=== PATIENT | female | born 1995 | race Hispanic/Latino ===

== ENCOUNTER 2020-07-07 18:35 | Emergency (ER) | payer OTHER, SELFPAY ==
--- NOTE | ~2020-07-07 | XR_ITS ---
XR chest 2V DATE: 07/07/2020 22:51 INDICATION: Right upper chest pain TECHNIQUE: PA and lateral views COMPARISON: 04/25/2017 two-view chest FINDINGS: Normal heart size. No hilar or mediastinal enlargement. No pulmonary infiltrate or consolid ation, pleural effusion or pulmonary vascular congestion or pneumothorax. IMPRESSION: Negative Reviewed, dictated and finalized at location A. IMPRESSION: Negative
--- NOTE | ~2020-07-07 | XR_ITS ---
XR shoulder RT min 2V DATE: 07/07/2020 22:52 INDICATION: Right shoulder and neck pain. No known injury. TECHNIQUE: 4 views COMPARISON: None FINDINGS: No fracture or dislocation, periosteal reaction or bone destruction. No abnormal soft tissu e calcification. IMPRESSION: Negative Reviewed, dictated and finalized at location A. IMPRESSION: Negative
[2020-07-07 18:37] VITALS: BP 150/88; PULSE 86; RESP 20; TEMP 36.6; O2SAT 100
[2020-07-07 22:34] VITALS: BP 139/89; PULSE 77; RESP 16; O2SAT 100
--- NOTE | 2020-07-07 23:50 | ED.NECK ---
HPI - Neck Pain/Injury General Chief Complaint: Neck Pain/Injury Stated Complaint: neck pain Time Seen by Provider: 07/07/20 22:54 Source: patient Mode of arrival: ambulatory Limitations: language barrier (Using [employer] spanish medical interpreter) History of Present Illness HPI Narrative: Patient presents the emergency department for right sided neck pain present over the last 3 days. No known injury or trauma. Reports the pain is worse with movement and relieved with rest. It radiates into her right shoulder. She has been taking anti-inflammatories with some relief. Denies fever, cough, shortness of breath, or weakness. Related Data Allergies Allergy/AdvReac Type Severity Reaction Status Date / Time No Known Allergies Allergy Verified 07/07/20 23:36 Review of Systems Review of Systems: Narrative: CONSTITUTIONAL: Denies fever CARDIOVASCULAR: Denies chest pain RESPIRATORY: Denies dyspnea. MUSCULOSKELETAL: Reports joint pain, and myalgia. NEUROLOGIC: Denies numbness, or weakness. All systems reviewed & are unremarkable except as noted in HPI and below PMFSH Past Medical History Medical History (Updated 07/07/20 @ 23:53 by Kaitlin Arora PA-C) No active medical problems Social History Social History Smoking status: Never smoker Alcohol intake: never Exam Narrative: Exam Narrative: GENERAL: Well-appearing, well-nourished, and in no acute distress. HEAD: Normocephalic, atraumatic. EYES: EOMI. NECK: No midline spinal tenderness CHEST: Clear to auscultation. No respiratory distress. No wheezes rales or rhonchi HEART: Regular rate and rhythm. No murmur heard. Normal peripheral pulses. EXTREMITIES: Normal range of motion. No edema, erythema or obvious deformity. Strength equal in bilateral upper extremities (5/5). Normal radial pulses. Pain is reproducible with lifting the right arm SKIN: Warm, dry, no rash. NEURO: No focal deficits. Alert and oriented x3. PSYCH: Normal mood and affect Course Vital Signs Vital signs: Vital Signs Temperature 97.9 F 07/07/20 18:37 Pulse Rate 86 07/07/20 18:37 Respiratory Rate 20 07/07/20 18:37 Blood Pressure 150/88 H 07/07/20 18:37 Pulse Oximetry 100 07/07/20 18:37 Temperature 97.9 F 07/07/20 18:37 Pulse Rate 77 07/07/20 22:34 Respiratory Rate 16 07/07/20 22:34 Blood Pressure 139/89 07/07/20 22:34 Pulse Oximetry 100 07/07/20 22:34 MDM - Neck Pain/Injury MDM Narrative Medical decision making narrative: Patient presents the emergency department for right-sided neck pain radiating into the shoulder. Present over the last 3 days. No known injury or trauma. She is neurologically intact. Her vitals are stable. Chest x-ray and right shoulder x-ray without acute findings. Patient updated on case findings. She wished to leave before any further treatment or evaluation. Instructed to follow-up with her primary doctor Imaging Data Radiologist's impression: ITS Impressions Chest X-Ray 07/07/20 22:52 IMPRESSION: Negative Shoulder X-Ray 07/07/20 22:54 IMPRESSION: Negative Critical Care Time Critical Care Time Critical Care Time: No Discharge Plan Discharge Clinical Impression: Strain of neck muscle Qualifiers: Encounter type: initial encounter Qualified Code(s): S16.1XXA - Strain of muscle, fascia and tendon at neck level, initial encounter Patient Disposition: Home, Self-Care Condition: Stable Instructions: Cervical Strain (ED) Additional Instructions: Return to the ER if you experience fever, cough, shortness of breath, weakness, numbness, or any other symptoms that are concerning to you Rest, use ice/heat, take anti-inflammatories (Aleve, Ibuprofen, Naproxen, etc) or Tylenol as needed for pain as well as muscle relaxer (Flexeril) as needed for pain. Muscle relaxers can make you drowsy, do not drive if you take this Follow up with your primary care doctor Prescriptions: New cyclobenzaprine 10
[2020-07-08 00:06] VITALS: BP 159/90; PULSE 72; RESP 16; O2SAT 98
== END 2020-07-08 00:06 | disposition home or self-care (01) ==
PROVIDERS: Emergency Provider Emergency Medicine; PCP Emergency Medicine
DX: S16.1XXA Strain of muscle, fascia and tendon at neck level, initial encounter (principal); X58.XXXA Exposure to other specified factors, initial encounter
CPT/HCPCS: 71046; 73030; 99284

== ENCOUNTER 2020-10-10 19:25 | Observation (INO) | payer OTHER, SELFPAY ==
[2020-10-10] VITALS (17 sets, daily range): BP systolic 119–151; BP diastolic 76–101; PULSE 62–106; RESP 14–28; TEMP 36.1–36.4; O2SAT 97–100; BMI 37.8
--- NOTE | ~2020-10-10 | CT_ITS ---
EXAMINATION: CT abdomen pelvis w con DATE: 10/10/2020 20:49 INDICATION: Right upper quadrant abdominal pain. TECHNIQUE: Computed tomography (CT) of the abdomen and pelvis was performed with 100 mL Omnipaque 350 intravenous contrast. Automated exposure control and iterative reconstruction technique were employe d. The dose-length product was 1345.07 mGy-cm. COMPARISON: CT abdomen and pelvis 04/26/2017 FINDINGS: The visualized portions of the lung bases demonstrate minimal atelectasis on the right. No pleural effusion. The heart size is normal. No pericardial effusion. The liver and spleen are normal. The gallbladder is distended and contains gallstones, including a gallstone in the gallbladder neck. The pancreas, adrenal glands, and kidneys are normal. There are no dilated loops of bowel. The appen jewel is normal. There are no pathologically enlarged lymph nodes. There is no free intraperitoneal flu id. The bones are unremarkable. IMPRESSION: 1. Acute cholecystitis. Reviewed, dictated and finalized at location A. IMPRESSION: 1. Acute cholecystitis.
[2020-10-10 19:51] LABS: Basophils Percent Auto 0.1 % (0.2-1.2); Eosinophils Absolute Auto 0.1 K/mm3 (0-0.3); Eosinophils Percent Auto 1.1 % (0-4.4); Hematocrit 42.1 % (37.0-47.0); Hemoglobin 13.7 g/dL (12.0-15.0); Immature Granulocyte Absolute 0.05 K/mm3 (0.00-0.031); Immature Granulocyte Percent A 0.5 % (0-0.5); Lymphocytes Absolute Auto 2.57 K/mm3 (0.9-3.2); Lymphocytes Percent Auto 23.6 % (18.3-44.2); Mean Corpuscular HGB Conc 32.5 g/dl (32-36); Mean Corpuscular Hemoglobin 26.9 pg (26-34); Mean Corpuscular Volume 82.7 fl (80-100); Mean Platelet Volume 11.2 fl (7.4-10.4); Monocytes Absolute Auto 0.5 K/mm3 (0.1-0.6); Monocytes Percent Auto 4.4 % (2.6-8.5); Neutrophils Absolute Auto 7.7 K/mm3 (1.3-6.7); Neutrophils Percent Auto 70.3 % (45.5-73.1); Platelet Count Result 275 k/mm3 (150-375); Red Blood Count 5.09 M/mm3 (4.2-5.4); Red Cell Distribution Width 12.8 % (11.5-14.5); White Blood Count 10.9 K/mm3 (4.5-10.0)
[2020-10-10 20:00] LABS: Alanine Aminotransferase 26 U/L (4-35); Albumin Level 4.8 g/dL (3.5-5.1); Alkaline Phosphatase 103 U/L (38-126); Anion Gap 10 mmol/L (8-16); Aspartate Amino Transferase 27 U/L (14-36); Bilirubin,Total 0.4 mg/dL (0.2-1.3); Blood Urea Nitrogen 8 mg/dL (7-17); Calcium 8.9 mg/dL (8.4-10.2); Carbon Dioxide 27 mmol/L (22-30); Chloride 102 mmol/L (98-107); Estimated Glomerular Filt Rate > 60; Glucose 102 mg/dL (65-110); Lipase 119 U/L (23-300); Potassium 3.3 mmol/L (3.4-5.0); Sodium 139 mmol/L (137-145)
--- NOTE | 2020-10-10 20:02 | ED.ABDPAIN ---
HPI - Abdominal Pain General Chief Complaint: Abdominal Pain Stated Complaint: abd pain Time Seen by Provider: 10/10/20 19:51 Source: RN notes reviewed History of Present Illness HPI narrative: Patient presents emergency department from home for abdominal pain. Patient states she has been having pain in the right upper quadrant for the past 2 hours the pain is described as sharp and stabbing does not radiate associate with nausea and vomiting. Patient states she has had been having intermittent pain in the right upper quadrant for the past 5 days she denies any fevers or chills chest pain shortness of breath or any other symptoms states she not take anything for the pain Related Data Allergies Allergy/AdvReac Type Severity Reaction Status Date / Time No Known Allergies Allergy Verified 07/07/20 23:36 Review of Systems Review of Systems: Gen.: Denies fevers or chills ENT: Denies congestion Respiratory: Denies shortness of breath or cough CV: Denies chest pain or palpitations GI: See HPI Musculoskeletal: Denies back pain or muscle pain Neuro: Denies numbness, tingling, weakness or focal weakness Skin: Denies rash Except as documented, all other systems reviewed and negative [facility] Past Medical History Medical History No active medical problems Social History Social History Smoking status: Never smoker Alcohol intake: never Exam Narrative: APPEARANCE: No acute distress, nontoxic, resting in bed HEENT: Normocephalic, atraumatic, OMM RESPIRATORY: No respiratory distress, clear to auscultation bilaterally with no rhonchi wheezing or rales CARDIOVASCULAR: RRR s murmur ABDOMINAL: Soft nondistended tender palpation right upper quadrant no tenderness in right lower quadrant, left lower quadrant left upper quadrant no rebound or guarding MUSCULOSKELETAl: Moves all extremities. No clubbing, cyanosis or edema. NEURO: Awake and alert. Following commands, speech normal, no focal deficits SKIN:: Warm, dry. Normal Color PSYCHIATRIC: Normal affect/mood Course Course Emergency Course: Called and discussed with Dr. Clemons presentation work-up agrees with admission to his service at this time Discussed with patient and family results of workup and diagnosis. Discussed need for admission. Patient and family understand and agree to current treatment plan Vital Signs Vital signs: Vital Signs Temperature 97.5 F L 10/10/20 19:31 Pulse Rate 106 H 10/10/20 19:31 Respiratory Rate 20 10/10/20 19:31 Blood Pressure 138/101 H 10/10/20 19:31 Pulse Oximetry 97 10/10/20 19:31 Temperature 97.5 F L 10/10/20 19:31 Pulse Rate 69 10/10/20 20:16 Respiratory Rate 14 10/10/20 20:16 Blood Pressure 151/89 H 10/10/20 20:16 Pulse Oximetry 99 10/10/20 20:16 MDM - Abdominal Pain Lab Data Result diagrams: 10/10/20 19:40 10/10/20 19:40 Labs: Lab Results 10/10/20 10/10/20 10/10/20 Range/Units 19:40 19:40 20:10 WBC 10.9 H (4.5-10.0) K/mm3 RBC 5.09 (4.2-5.4) M/mm3 Hgb 13.7 (12.0-15.0) g/dL Hct 42.1 (37.0-47.0) % MCV 82.7 (80-100) fl MCH 26.9 (26-34) pg MCHC 32.5 (32-36) g/dl RDW 12.8 (11.5-14.5) % Plt Count 275 (150-375) k/mm3 MPV 11.2 H (7.4-10.4) fl Immature Gran % (Auto) 0.5 (0-0.5) % Neut % (Auto) 70.3 (45.5-73.1) % Lymph % (Auto) 23.6 (18.3-44.2) % Burnett % (Auto) 4.4 (2.6-8.5) % Eos % (Auto) 1.1 (0-4.4) % Baso % (Auto) 0.1 L (0.2-1.2) % Lymph # (Auto) 2.57 (0.9-3.2) K/mm3 Burnett # (Auto) 0.5 (0.1-0.6) K/mm3 Eos # (Auto) 0.1 (0-0.3) K/mm3 Baso # (Auto) 0.0 (0.0-0.1) K/mm3 Abs Immat Gran (auto) 0.05 H (0.00-0.031) K/mm3 Absolute Neuts (auto) 7.7 H (1.3-6.7) K/mm3 Absolute Nucleated RBC 0.0 (0.0-0.012) K/mm3 Nucleated RBC % 0.0 (0.0-0.2) % Sodium 139
[2020-10-10] MEDS: MORPHINE SULFATE (*CRX) 4 MG/ML INJ IV PUSH (20:11)
[2020-10-10] MEDS: SODIUM CHLORIDE 0.9% IV 1,000 ML 999 ML IV CONT (20:11)
[2020-10-10] MEDS: ONDANSETRON INJ 4 MG/2 ML VIAL IV PUSH (20:11)
[2020-10-10 20:26] LABS: Add Urine Microscopic? YES; Appearance Urine Clear (Clear); Bilirubin Urine Negative (Negative); Blood Urine 1+ (Negative); Color Urine Straw (Yellow); Glucose Urine UA Negative (Negative); Ketones Urine Negative (Negative); Leukocyte Esterase Ur Negative LEU/UL (Negative); Mucus Urine Rare /lpf; Nitrate Urine Negative (Negative); Protein Urine 2+ mg/dL (Negative); Specific Grav Ur 1.011 (1.001-1.035); Squamous Epithelial Cell Urine Occasional /hpf (Few); Urobilinogen Urine Negative mg/dL (<2.0); WBC Urine 0-3 /hpf
--- NOTE | 2020-10-10 22:56 | PC.NURSE ---
REPORT TO FREDDIE JOHNSON.
[2020-10-10] MEDS: SODIUM CHLORIDE 0.9% IV 1,000 ML 125 ML IV CONT (23:08)
--- NOTE | 2020-10-10 23:19 | ADMGEN ---
This patient, Maryann Thomas, was admitted to 3 [facility] Surg Room 309-01. Patient/family oriented to hospital policies and general routines including ID bracelet, bed and alarms, visiting hours, pain management, procedures, bathroom and other care routines, personal items, smoking policy, room service/diet, and visiting hours. Information on how to activate the Rapid Response Team has been discussed. Patient/Family are encouraged to report perceived risks to care and to ask questions if they do not understand what they are told or what they should do.
[2020-10-11 04:34] VITALS: BP 125/73; PULSE 66; RESP 16; TEMP 36.5; O2SAT 100
[2020-10-11] MEDS: SODIUM CHLORIDE 0.9% IV 1,000 ML 125 ML IV CONT (05:25)
[2020-10-11 07:09] LABS: Basophils Percent Auto 0.1 % (0.2-1.2); Eosinophils Absolute Auto 0.1 K/mm3 (0-0.3); Eosinophils Percent Auto 0.9 % (0-4.4); Hemoglobin 11.5 g/dL (12.0-15.0); Immature Granulocyte Absolute 0.03 K/mm3 (0.00-0.031); Immature Granulocyte Percent A 0.3 % (0-0.5); Lymphocytes Absolute Auto 2.14 K/mm3 (0.9-3.2); Lymphocytes Percent Auto 22.2 % (18.3-44.2); Mean Corpuscular HGB Conc 31.9 g/dl (32-36); Mean Corpuscular Hemoglobin 26.3 pg (26-34); Mean Corpuscular Volume 82.4 fl (80-100); Mean Platelet Volume 11.5 fl (7.4-10.4); Monocytes Absolute Auto 0.4 K/mm3 (0.1-0.6); Monocytes Percent Auto 4.1 % (2.6-8.5); Neutrophils Percent Auto 72.4 % (45.5-73.1); Platelet Count Result 232 k/mm3 (150-375); Red Blood Count 4.37 M/mm3 (4.2-5.4); Red Cell Distribution Width 12.7 % (11.5-14.5); White Blood Count 9.7 K/mm3 (4.5-10.0)
--- NOTE | 2020-10-11 09:47 | PM.SD2 ---
Same Day Admit/Disch: HPI History of Present Illness Chief complaint: Right upper quadrant pain Narrative: Maryann Thomas is a 25 year old female who presented to the emergency department overnight with right upper quadrant abdominal pain. She began experiencing pain yesterday after lunch. She has had a couple minor episodes of pain similar to this over the past several days, but none this severe. She was also experiencing nausea and vomiting. She denied any fevers or chills. Her pain was unable to be controlled in the emergency department initially. She was noted to have a slightly elevated white blood count but liver enzymes were normal. A CT of her abdomen and pelvis was obtained and that showed evidence of acute cholecystitis. She was admitted for further treatment. [facility] Past Medical History Medical History (Updated 10/11/20 @ 09:58 by Ray Clemons DO) No active medical problems Surgical History Surgical History (Updated 10/11/20 @ 09:51 by Ray Clemons DO) History of section Family History Family History (Updated 10/11/20 @ 09:51 by Ray Clemons DO) Mother Gallbladder disease Social History Social History Smoking status: Never smoker Alcohol intake: current Drinks per week: 1 Substance use: never Spiritual care concerns: No Same Day Admit/Disch: Med Pre-admit Medications Home Medications Medication Instructions Recorded Confirmed Type No Home Medications 10/11/20 10/11/20 History hydrocodone-acetaminophen 1 tablet PO Q4H PRN #10 tablet 10/11/20 Rx Exam Const: General: alert; No acute distress Orientation/consciousness: patient oriented x3 Limitations: no limitations HENMT: Head: normocephalic and atraumatic Ears: hearing grossly normal bilaterally General nose exam: Normal external nose present and Normal nares present Mouth: Yes Normal oral and palatal mucosa present and Yes moist mucous membranes Eyes: General: appearance normal, both eyes and all related structures Conjunctivae: conjunctivae normal Sclera: sclerae normal Pupils: Equal, round and reactive pupils present EOM: EOMs intact bilaterally Neck: Neck: normal visual inspection, full ROM, no lymphadenopathy, supple and no JVD Lymphatic: no lymphadenopathy noted Chest: Chest palpation & inspection: normal inspection of the chest Resp: Effort & Inspection: normal respiratory effort and able to speak in complete sentences Auscultation: clear to auscultation bilaterally Percussion: percussion normal Cardio: Jugular venous distension: no JVD Rate: regular rate Rhythm: regular rhythm Heart sounds: S1 normal heart sound present and S2 normal heart sound present Peripheral pulses: Peripheral pulses 2+ throughout GI: Inspection: normal to inspection GI Palp: Yes Soft to palpation, Yes Tenderness to palpation present (GI) (Mild RUQ), No Hernia present and No Rebound tenderness present Percussion: Yes normal to percussion Auscultation: normal bowel sounds : General: Yes no CVA tenderness Back/Spine/Pelvis: Back: no CVA tenderness Skin: General skin exam: normal color and dry skin Neuro: General: patient oriented x3, gait normal, moves all extremities, no focal motor deficits and CN's II-XI intact bilaterally Cranial nerves: Yes Equal, round and reactive pupils present Speech: normal speech Extrem: General: normal to inspection and capillary refill normal DS: Data Data Completed and Pending Labs on day of discharge: Labs from last 24 hours 10/11/20 10/11/20 10/10/20 06:23 06:23 20:10 WBC 9.7 RBC 4.37 Hgb 11.5 L Hct 36.0 L MCV 82.4 MCH 26.3 MCHC 31.9 L RDW 12.7 Plt Count 232 MPV 11.5 H Immature Gran % (Auto) 0.3 Neut % (Auto) 72.4 Lymph % (Auto) 22.2 Garland % (Auto) 4.1 Eos % (Auto) 0.9 Baso % (Auto) 0.1 L Lymph # (Auto) 2.14 Garland # (Auto) 0.4 Eos # (
[2020-10-11 11:52] LABS: Alanine Aminotransferase 20 U/L (4-35); Albumin Level 3.8 g/dL (3.5-5.1); Alkaline Phosphatase 70 U/L (38-126); Anion Gap 8 mmol/L (8-16); Aspartate Amino Transferase 22 U/L (14-36); Bilirubin,Total 0.6 mg/dL (0.2-1.3); Blood Urea Nitrogen 6 mg/dL (7-17); Carbon Dioxide 24 mmol/L (22-30); Chloride 106 mmol/L (98-107); Estimated CRCL calculation 135 ml/min; Estimated Glomerular Filt Rate > 60; Glucose 99 mg/dL (65-110); Potassium 3.2 mmol/L (3.4-5.0); Sodium 138 mmol/L (137-145)
== END 2020-10-11 15:04 | disposition home or self-care (01) ==
LOC: ANHED 21:14 → ANH3MEDSUR 21:45
PROVIDERS: Admitting Provider Surgery; Emergency Provider Emergency Medicine; PCP Emergency Medicine; Visit Provider Surgery
DX: K81.0 Acute cholecystitis (principal); E66.9 Obesity, unspecified; Z68.37 Body mass index [BMI] 37.0-37.9, adult
CPT/HCPCS: 36415; 74177; 80053; 81001; 81025; 83690; 85025; 96360; 96361; 96365; 96375; 99285; G0378; G0379; J2270; J2405; J2543; J7030; Q9967